=== PATIENT | male | born 1990 | race American Indian/Alaskan Native ===

== ENCOUNTER 2021-07-02 23:45 | Emergency (ER) | payer SELFPAY ==
--- NOTE | 2021-07-03 00:23 | Emergency Department Report ---
HPI <JAY PHILLIPS - Last Filed: 07/03/21 12:01> - HPI HPI: Room 12 The patient is a 30-year-old male present with a chief complaint of auditory visual hallucinations. Patient presents emergency department for auditory visual hallucinations after smoking marijuana with methamphetamines. Patient denies suicidal homicidal ideations. When asked what he was seen the patient states "I was seeing dots and stuff." Patient also admits to hearing voices but does not mention what the voices say <SLICK CRAWLEY - Last Filed: 07/07/21 19:05> - General Chief Complaint: Psych Time Seen by Provider: 07/03/21 00:07 ED Past Medical Hx - Past Medical History Previous Medical History?: No - Surgical History Past Surgical History?: No - Family History Family history: no significant - Social History Smoking Status: Current Some Day Smoker (Black and milds) Substance Use Type: Alcohol, Marijuana, Methamphetamines <SLICK CRAWLEY - Last Filed: 07/07/21 19:05> ED Review of Systems ROS: Stated complaint: HALLUCINATION Other details as noted in HPI <JAY PHILLIPS - Last Filed: 07/03/21 12:01> ROS: Stated complaint: HALLUCINATION Other details as noted in HPI Constitutional: no symptoms reported Eyes: denies: eye pain ENT: denies: throat pain Respiratory: no symptoms reported Cardiovascular: denies: chest pain Endocrine: no symptoms reported Gastrointestinal: denies: abdominal pain Genitourinary: denies: dysuria Neurological: denies: headache Psychiatric: auditory hallucinations, visual hallucinations. denies: homicidal thoughts, suicidal thoughts <SLICK CRAWLEY - Last Filed: 07/07/21 19:05> Physical Exam - Physical Exam Vital Signs: Vital Signs 07/02/21 07/03/21 23:50 08:54 Temperature 97.5 F L 98.9 F Pulse Rate 118 H 74 Respiratory 18 20 Rate Blood Pressure 139/94 134/107 [Right] O2 Sat by Pulse 97 98 Oximetry <JAY PHILLIPS - Last Filed: 07/03/21 12:01> - Physical Exam Vital Signs: Vital Signs 07/02/21 23:50 Temperature 97.5 F L Pulse Rate 118 H Respiratory 18 Rate Blood Pressure 139/94 [Right] O2 Sat by Pulse 97 Oximetry Physical Exam: GENERAL: The patient is well-developed well-nourished male sitting in chair not appearing to be in acute distress HEENT: Normocephalic. Atraumatic. Extraocular motions are intact. Patient has moist mucous membranes. NECK: Supple. Trachea midline CHEST/LUNGS: Clear to auscultation. There is no respiratory distress noted. HEART/CARDIOVASCULAR: Regular. There is tachycardia. There is no gallop rub or murmur. ABDOMEN: Abdomen is soft, nontender. Patient has normal bowel sounds. There is no abdominal distention. SKIN: There is no rash. There is no edema. There is no diaphoresis. NEURO: The patient is awake, alert, and oriented. The patient is cooperative. The patient has no focal neurologic deficits. The patient has normal speech. GCS 15 MUSCULOSKELETAL: There is no evidence of acute injury. <SLICK CRAWLEY - Last Filed: 07/07/21 19:05> ED Course Vital Signs 07/02/21 07/03/21 23:50 08:54 Temperature 97.5 F L 98.9 F Pulse Rate 118 H 74 Respiratory 18 20 Rate Blood Pressure 139/94 134/107 [Right] O2 Sat by Pulse 97 98 Oximetry - Reevaluation(s) Reevaluation #1: 07/03/21 12:01 Psychiatric Consult Note Patient Name: YONAS LIM JR Date of : 86 Patient Status: Emergency Emergency Provider: SLICK CRAWLEY Date: 07/03/21 11:26 Initialization Date: 07/03/21 11:26 History of Present Illness - Reason for Consult Consult date: 07/03/21 Reason for consult: Mental health evaluation - History of Present Psychiatric Illness ED Note: The patient is a 30-year-old male present with a chief complaint of auditory visual hallucinations. Patient presents emergency department for auditory visual hallucinations after smoking marijuana with methamphetamines. Patient denies suicidal homicidal ideations. When asked what he was seen the patient states "I was seeing dots and stuff." Patient also admits to hearing vo ices but does not mention what the voices say. Yonas Lim is a 30 year old male with history of Methamphetamine Dependence. In my interview with with the patient, he was seen pulling on his ears. He endorses auditory/ visual hallucinations. The patient is withdrawing and he is restless, states he last used meth about 2 days ago. He denies any current suicidal/homicidal ideation. PAST PSYCHIATRIC HISTORY Diagnoses: Denies Suicide attempts or Self-harm behavior: denies Prior psychiatric hospitalizations: Denies Substance Abuse history: Denies Previous psychiatric medications tried:unable to recall Outpatient treatment: yes PAST MEDICAL HISTORY: None reported Family Psychiatric History: None reported or documented SOCIAL HISTORY Marital Status: Single Living Arrangements: with mother Employment Status: unemployed Access to guns/weapons: Denies Education: some college History of Abuse: Denies Legal History: unknown EVIEW OF SYSTEMS Constitutional: Negative for weight loss ENT: Negative for stridor Respiratory: Negative for cough or hemoptysis All other systems reviewed and are negative MENTAL STATUS EXAMINATION General Appearance and Behavior: Age appropriate, wearing appropriate clothes, good eye contact, anxious and cooperative Mood: anxious Affect and affective range: Restricted Thought Process: illogical Thought Content: hallucinations Speech: Normal volume, Regular rate and rhythm Suicidal Ideation: Denies Homicidal Ideation: Denies Hallucinations: Auditory Delusions: none Impulse Control: normal Insight and Judgment: Limited Memory/Cognition: Limited Attention: Normal Orientation: Alert, oriented Assessment (1) Methamphetamine Dependence (2) (3) Plan 1013 Start Seroquel 25mg po BID Sitter: Defer to primary Medical: Per primary Disposition: Recommend acute inpatient psychiatric treatment Will follow Case staffed with Dr. Love <JAY PHILLIPS - Last Filed: 07/03/21 12:01> Vital Signs 07/02/21 23:50 Temperature 97.5 F L Pulse Rate 118 H Respiratory 18 Rate Blood Pressure 139/94 [Right] O2 Sat by Pulse 97 Oximetry <SLICK CRAWLEY - Last Filed: 07/07/21 19:05> ED Medical Decision Making - Lab Data Result diagrams: 07/03/21 02:07 07/03/21 02:07 <JAY PHILLIPS - Last Filed: 07/03/21 12:01> - Lab Data Result diagrams: 07/03/21 02:07 07/03/21 02:07 - Differential Diagnosis Polysubstance abuse <SLICK CRAWLEY - Last Filed: 07/07/21 19:05> Critical care attestation.: If time is entered above; I have spent that time in minutes in the direct care of this critically ill patient, excluding procedure time. <JAY PHILLIPS - Last Filed: 07/03/21 12:01> Critical care attestation.: If time is entered above; I have spent that time in minutes in the direct care of this critically ill patient, excluding procedure time. <SLICK CRAWLEY - Last Filed: 07/07/21 19:05> ED Disposition <JAY PHILLIPS - Last Filed: 07/03/21 12:01> Is pt being admited?: No Does the pt Need Aspirin: No <SLICK CRAWLEY - Last Filed: 07/07/21 19:05> Clinical Impression: Hallucination Disposition: 01 HOME / SELF CARE / HOMELESS Condition: Stable Additional Instructions: Drink plenty of water. Follow-up as recommended by behavioral health. Return for problems. Follow-up with your regular physician. If you do not have a regular physician, follow-up with the referral physician. Referrals: MEREDITH GOLDMAN MD [Primary Care Provider] - 3-5 Days HUMPHREY CRAFT MD [Staff Physician] - 3-5 Days
[2021-07-03] MEDS ORDERED: HALOPERIDOL LACTATE 5 MG/1 ML INJ IM PRN (01:16)
[2021-07-03] MEDS ORDERED: LORazepam 2 MG/ML VIAL IM PRN (01:16)
[2021-07-03] MEDS ORDERED: diphenhydrAMINE 50 MG/ML VIAL IM PRN (01:16)
[2021-07-03 02:20] LABS: Basophils # (Auto) 0.1 K/mm3 (0.0-0.1); Basophils % (Auto) 0.7 % (0.0-1.8); Eosinophils % (Auto) 0.1 % (0.0-4.3); Hematocrit 52.3 % (35.5-45.6); Hemoglobin 17.7 gm/dl (11.8-15.2); Lymphocytes # (Auto) 2.5 K/mm3 (1.2-5.4); Lymphocytes % (Auto) 18.3 % (13.4-35.0); Mean Corpuscular HGB Conc 34 % (32-34); Mean Corpuscular Volume 96 fl (84-94); Monocytes # (Auto) 0.9 K/mm3 (0.0-0.8); Monocytes % (Auto) 6.3 % (0.0-7.3); Platelet Count 431 K/mm3 (140-440); Red Blood Count 5.43 M/mm3 (3.65-5.03); Red Cell Distribution Width 14.1 % (13.2-15.2)
[2021-07-03 02:38] LABS: Calcium 10.8 mg/dL (8.4-10.2)
--- NOTE | 2021-07-03 11:30 | Consultation ---
History of Present Illness - Reason for Consult Consult date: 07/03/21 Reason for consult: Mental health evaluation - History of Present Psychiatric Illness ED Note: The patient is a 30-year-old male present with a chief complaint of auditory visual hallucinations. Patient presents emergency department for auditory visual hallucinations after smoking marijuana with methamphetamines. Patient denies suicidal homicidal ideations. When asked what he was seen the patient states "I was seeing dots and stuff." Patient also admits to hearing voices but does not mention what the voices say. Saurabh Lim is a 30 year old male with history of Methamphetamine Dependence. In my interview with with the patient, he was seen pulling on his ears. He endorses auditory/ visual hallucinations. The patient is withdrawing and he is restless, states he last used meth about 2 days ago. He denies any current suicidal/homicidal ideation. PAST PSYCHIATRIC HISTORY Diagnoses: Denies Suicide attempts or Self-harm behavior: denies Prior psychiatric hospitalizations: Denies Substance Abuse history: Denies Previous psychiatric medications tried:unable to recall Outpatient treatment: yes PAST MEDICAL HISTORY: None reported Family Psychiatric History: None reported or documented SOCIAL HISTORY Marital Status: Single Living Arrangements: with mother Employment Status: unemployed Access to guns/weapons: Denies Education: some college History of Abuse: Denies Legal History: unknown EVIEW OF SYSTEMS Constitutional: Negative for weight loss ENT: Negative for stridor Respiratory: Negative for cough or hemoptysis All other systems reviewed and are negative MENTAL STATUS EXAMINATION General Appearance and Behavior: Age appropriate, wearing appropriate clothes, good eye contact, anxious and cooperative Mood: anxious Affect and affective range: Restricted Thought Process: illogical Thought Content: hallucinations Speech: Normal volume, Regular rate and rhythm Suicidal Ideation: Denies Homicidal Ideation: Denies Hallucinations: Auditory Delusions: none Impulse Control: normal Insight and Judgment: Limited Memory/Cognition: Limited Attention: Normal Orientation: Alert, oriented Assessment (1) Methamphetamine Dependence (2) (3) Plan 1013 Start Seroquel 25mg po BID Sitter: Defer to primary Medical: Per primary Disposition: Recommend acute inpatient psychiatric treatment Will follow Case staffed with Dr. Love Medications and Allergies Allergies Allergy/AdvReac Type Severity Reaction Status Date / Time No Known Allergies Allergy Unverified 07/03/21 01:17 Active Meds: Active Medications Diphenhydramine HCl (Diphenhydramine 50 Mg/Ml Vial) 50 mg IM Q6H PRN PRN Reason: Agitation Haloperidol Lactate (Haloperidol Lactate 5 Mg/1 Ml Inj) 10 mg IM Q8H PRN PRN Reason: Agitation Lorazepam (Lorazepam 2 Mg/Ml Vial) 2 mg IM Q8H PRN PRN Reason: Agitation Mental Status Exam - Vital signs Last Vital Signs Temp 98.9 F 07/03/21 08:54 Pulse 74 07/03/21 08:54 Resp 20 07/03/21 08:54 BP 134/107 07/03/21 08:54 Pulse Ox 98 07/03/21 08:54 Results Result Diagrams: 07/03/21 02:07 07/03/21 02:07 Abnormal lab results 07/03/21 07/03/21 07/03/21 Range/Units 02:07 02:07 02:07 WBC 13.7 H (4.5-11.0) K/mm3 RBC 5.43 H (3.65-5.03) M/mm3 Hgb 17.7 H (11.8-15.2) gm/dl Hct 52.3 H (35.5-45.6) % MCV 96 H (84-94) fl MCH 33 H (28-32) pg Nobles # (Auto) 0.9 H (0.0-0.8) K/mm3 Seg Neutrophils % 74.6 H (40.0-70.0) % Seg Neutrophils # 10.2 H (1.8-7.7) K/mm3 Sodium 133 L (137-145) mmol/L Chloride 93.0 L (98-107) mmol/L Carbon Dioxide 19 L (22-30) mmol/L Creatinine 1.6 H (0.8-1.3) mg/dL Calcium 10.8 H (8.4-10.2) mg/dL Salicylates < 0.3 L (2.8-20.0) mg/dL Acetaminophen (10.0-30.0) ug/mL 07/03/21 Range/Units 02:07 WBC (4.5-11.0) K/mm3 RBC (3.65-5.03) M/mm3 Hgb (11.8-15.2) gm/dl Hct (35.5-45.6) % MCV (84-94) fl MCH (28-32) pg Nobles # (Auto) (0.0-0.8) K/mm3 Seg Neutrophils % (40.0-70.0) % Seg Neutrophils # (1.8-7.7) K/mm3 Sodium (137-145) mmol/L Chloride (98-107) mmol/L Carbon Dioxide (22-30) mmol/L Creatinine (0.8-1.3) mg/dL Calcium (8.4-10.2) mg/dL Salicylates (2.8-20.0) mg/dL Acetaminophen 5.0 L (10.0-30.0) ug/mL All other labs normal.
[2021-07-03] MEDS: QUEtiapine 25 MG TAB PO SCH ×2 (15:17→22:57)
[2021-07-04 06:32] LABS: Bilirubin,Urine NEG (Negative); Blood,Urine SM (Negative); Color,Urine Yellow (Yellow); Mucus,Urine FEW /HPF; Urobilinogen,Urine < 2.0 mg/dL (<2.0)
[2021-07-04 06:34] LABS: Benzodiazepines Screen,Urine Negative; Cannabinoid Screen,Urine Negative; Cocaine Screen,Urine Negative; Methadone Screen,Urine Negative; Opiate Screen,Urine Negative
[2021-07-04 06:47] LABS: Amphetamine Screen,Urine Positive
--- NOTE | 2021-07-04 09:38 | Progress Note ---
Subjective - Reason for Consult Consult date: 07/04/21 Reason for consult: Mental health evaluation - Chief Complaint Chief complaint: The patient is seen this morning, he reports feeling better. He denies any current suicidal/homicidal ideation and denies hallucinations. REVIEW OF SYSTEMS Constitutional: Negative for weight loss ENT: Negative for stridor Respiratory: Negative for cough or hemoptysis All other systems reviewed and are negative MENTAL STATUS EXAMINATION General Appearance and Behavior: Age appropriate, wearing appropriate clothes, good eye contact, anxious and cooperative Mood: anxious Affect and affective range: Restricted Thought Process: illogical Thought Content: hallucinations Speech: Normal volume, Regular rate and rhythm Suicidal Ideation: Denies Homicidal Ideation: Denies Hallucinations: Auditory Delusions: none Impulse Control: normal Insight and Judgment: Limited Memory/Cognition: Limited Attention: Normal Orientation: Alert, oriented Assessment (1) Methamphetamine Dependence (2) (3) Plan DC 1013 Start Seroquel 25mg po BID Sitter: Defer to primary Medical: Per primary Disposition:Do not recommend acute inpatient psychiatric treatment. [facility] will provide patient with psychiatric out patient resources. Will sign off. Case staffed with Dr. Love Medications and Allergies Mental Status Exam - Vital signs Last Vital Signs Temp 98.1 F 07/03/21 19:00 Pulse 73 07/03/21 19:00 Resp 18 07/03/21 19:00 BP 107/78 07/03/21 19:00 Pulse Ox 97 07/03/21 19:00
[2021-07-04] MEDS ORDERED: SODIUM CHLORIDE 0.9% 1000 ML 1,000 ML ONE ×2 (10:09→10:10)
[2021-07-04 11:07] VITALS: BP 132/63
--- NOTE | 2021-07-04 11:27 | Emergency Department Report ---
Blank Doc - Documentation Documentation: Patient is resting this morning. He has no complaints. He is eating without difficulty. Psychiatric recommendations have been noted. Patient will be discharged based on their recommendations. Is not actively suicidal or homicidal.
[2021-07-04] MEDS: QUEtiapine 25 MG TAB PO SCH (11:35)
== END 2021-07-04 11:41 | disposition home or self-care (01) ==
LOC: ED 23:45
DX: R44.0 Auditory hallucinations (principal); R44.1 Visual hallucinations; Z20.822 Contact with and (suspected) exposure to COVID-19; F17.200 Nicotine dependence, unspecified, uncomplicated; F12.90 Cannabis use, unspecified, uncomplicated; F15.90 Other stimulant use, unspecified, uncomplicated; Z72.89 Other problems related to lifestyle; Z79.899 Other long term (current) drug therapy
CPT/HCPCS: 36415; 80048; 80307; 81001; 85025; 87086; 96372; 99283; J1200; J1630; J2060; J7030; U0003; 80320; Q0162; G0480

== ENCOUNTER 2021-08-18 13:09 | Emergency (ER) | payer SELFPAY | END 2021-08-18 13:11 | LOC: ED 13:09 | DX: R44.3 Hallucinations, unspecified (principal); Z53.21 Procedure and treatment not carried out due to patient leaving prior to being seen by health care provider ==